=== PATIENT | female | born 1990 | race Hispanic/Latino ===

== ENCOUNTER 2020-12-29 06:53 | Emergency (ER) ==
[2020-12-29 07:51] LABS: Absolute Lymphocytes (CBC) 2.2 K/uL (0.7-4.9); Basophils % 0.7 % (0-1.3); Hematocrit 40.1 % (36.0-45.0); Lymphocytes % 30.1 % (15.3-44.8); MPV 8.5 fL (7.6-11.3); RBC Red Blood Cell Count 4.93 M/uL (3.86-4.86)
[2020-12-29 07:52] LABS: Protime INR 1.04
[2020-12-29 08:05] LABS: ALT/SGPT 26 U/L (12-78); AST/SGOT 13 U/L (15-37); Albumin 3.4 g/dL (3.4-5.0); Alkaline Phosphatase 80 U/L (45-117); BUN Blood Urea Nitrogen 15 mg/dL (7-18); Bicarbonate 26 mmol/L (21-32); Bilirubin Direct 0.1 mg/dL (0-0.2); Bilirubin Total 0.5 mg/dL (0.2-1.0); Glucose Level 90 mg/dL (74-106); Magnesium 2.1 mg/dL (1.8-2.4); NT PRO-BNP 66 pg/mL (<125); Potassium 3.5 mmol/L (3.5-5.1); Protein, Total 7.8 g/dL (6.4-8.2); Sodium Level 141 mmol/L (136-145); Troponin (Emerg Dept Use Only) < 0.02 ng/mL (0.0-0.045)
--- NOTE | 2020-12-29 08:19 | ER ---
Nurse's Notes [facility] Name: Sofi Thompson Age: 30 yrs Sex: Female : 1990 Arrival Date: 12/29/2020 Time: 07:00 Bed 5 Private MD: Diagnosis: Chest pain, unspecified;Abdominal and pelvic pain Presentation: 12/29 07:08 Chief complaint: Patient states: CP off/on for 1 week. No cough or SOB. Coronavirus ll1 screen: Client denies travel out of the [place] in the last 14 days. At this time, the client does not indicate any symptoms associated with coronavirus-19. Ebola Screen: Patient denies travel to an Ebola-affected area in the 21 days before illness onset. Initial Sepsis Screen: Does the patient meet any 2 criteria? HR > 90 bpm. No. Patient's initial sepsis screen is negative. Does the patient have a suspected source of infection? No. Patient's initial sepsis screen is negative. Risk Assessment: Do you want to hurt yourself or someone else? Patient reports no desire to harm self or others. Onset of symptoms was December 22, 2020. 07:08 Method Of Arrival: Ambulatory ll1 07:08 Acuity: GABRIELA 3 ll1 Triage Assessment: 07:10 General: Appears in no apparent distress. comfortable, obese, Behavior is cooperative, bp appropriate for age, anxious. Pain: Complains of pain in chest. EENT: No deficits noted. Neuro: No deficits noted. Cardiovascular: Rhythm is sinus rhythm. Respiratory: No deficits noted. GI: No signs and/or symptoms were reported involving the gastrointestinal system. : No signs and/or symptoms were reported regarding the genitourinary system. Derm: No deficits noted. Musculoskeletal: No deficits noted. Historical: - Allergies: 07:08 No Known Allergies; ll1 - PMHx: 07:08 None; ll1 - PSHx: 07:08 leg/hand SX; ll1 - Immunization history:: Flu vaccine is not up to date. - Social history:: Smoking status: Patient denies any tobacco usage or history of. Screenin:10 Abuse screen: Denies threats or abuse. Nutritional screening: No deficits noted. ll1 Tuberculosis screening: No symptoms or risk factors identified. 08:32 Fall Risk None identified. bp Assessment: 07:10 General: SEE TRIAGE NOTE. bp 08:32 Reassessment: PT D/C HOME AMBULATORY, DX WITH NONCARDIAC CHEST PAIN. bp Vital Signs: 07:08 BP 143 / 96; Pulse 92; Resp 17; Temp 98.9; Pulse Ox 98% on R/A; Weight 140.61 kg; ll1 Height 5 ft. 11 in. (180.34 cm); Pain 3/10; 08:31 BP 138 / 81; Pulse 92; Resp 21; Temp 98.5; Pulse Ox 97% ; bp 07:08 Body Mass Index 43.24 (140.61 kg, 180.34 cm) ll1 ED Course: 07:00 Patient arrived in ED. es 07:02 Alfred Villalba, RN is Primary Nurse. bp 07:07 Arm band placed on Patient placed in an exam room, on a stretcher. ll1 07:08 Mark Pacheco MD is Attending Physician. kdr 07:10 Triage completed. 1 07:25 Inserted saline lock: 20 gauge in right forearm, using aseptic technique. Blood bp collected. 07:27 Patient has correct armband on for positive identification. Bed in low position. Call bp light in reach. Side rails up X2. needle polisher on. Pulse ox on. NIBP on. 07:28 EKG done, by ED staff, reviewed by Mark Pacheco MD. 5 07:29 Placed in gown. Warm blanket given. 5 07:54 XRAY Chest (1 view) In Process Unspecified. EDMS 08:32 No provider procedures requiring assistance completed. IV discontinued, intact, bp bleeding controlled, No redness/swelling at site. Pressure dressing applied. Patient maintains SpO2 saturation greater than 95% on room air. Administered Medications: No medications were administered Outcome: 08:18 Discharge ordered by . kdr 08:32 Discharged to home ambulatory. bp 08:32 Condition: stable 08:32 Discharge instructions given to patient, Instructed on discharge instructions, follow up and referral plans. Demonstrated understanding of instructions, follow-up care. 08:33 Patient left the ED. bp Signatures: Dispatcher [employer] EDMS Mark Pacheco MD MD kdr Salyer, Edna es Martinez, [facility] Alfred Villalba, RN RN Ruel Dasilva RN RN 1
--- NOTE | 2020-12-29 08:19 | EDPHYS ---
Physician Documentation [facility] Name: Sofi Thompson Age: 30 yrs Sex: Female : 1990 Arrival Date: 12/29/2020 Time: 07:00 Bed 5 Private MD: ED Physician Mark Pacheco HPI: 12/29 08:13 This 30 yrs old Female presents to ER via Ambulatory with complaints of Chest kdr Pain. 08:13 The patient or guardian reports chest pain that is located primarily in the substernal kdr area, epigastric area. The pain radiates to back. Associated signs and symptoms: The patient has no apparent associated signs or symptoms. The chest pain is described as aching, burning, dull, a pressure. Duration: The patient or guardian reports multiple episodes, that are intermittent, that wax and wane, with no pattern. Modifying factors: The symptoms are alleviated by nothing. the symptoms are aggravated by eating. Severity of pain: At its worst the pain was mild in the emergency department the pain is unchanged. Not prior to this last week. The patient has not recently seen a physician. Historical: - Allergies: 07:08 No Known Allergies; ll1 - PMHx: 07:08 None; ll1 - PSHx: 07:08 leg/hand SX; ll1 - Immunization history:: Flu vaccine is not up to date. - Social history:: Smoking status: Patient denies any tobacco usage or history of. ROS: 08:13 Constitutional: Negative for fever, chills, and weight loss, Eyes: Negative for injury, kdr pain, redness, and discharge, ENT: Negative for injury, pain, and discharge, Neck: Negative for injury, pain, and swelling, Respiratory: Negative for shortness of breath, cough, wheezing, and pleuritic chest pain, Abdomen/GI: Negative for abdominal pain, nausea, vomiting, diarrhea, and constipation, Back: Negative for injury and pain, : Negative for injury, bleeding, discharge, and swelling, MS/Extremity: Negative for injury and deformity, Skin: Negative for injury, rash, and discoloration, Neuro: Negative for headache, weakness, numbness, tingling, and seizure activity. Psych: Negative for depression, anxiety, suicide ideation, homicidal ideation, and hallucinations, Allergy/Immunology: Negative for hives, rash, and allergies, Endocrine: Negative for neck swelling, polydipsia, polyuria, polyphagia, and marked weight changes, Hematologic/Lymphatic: Negative for swollen nodes, abnormal bleeding, and unusual bruising. 08:13 Cardiovascular: Positive for chest pain, Negative for edema, orthopnea, palpitations, paroxysmal nocturnal dyspnea. Exam: 08:13 Constitutional: This is a well developed, well nourished patient who is awake, alert, kdr and in no acute distress. Head/Face: Normocephalic, atraumatic. Eyes: Pupils equal round and reactive to light, extra-ocular motions intact. Lids and lashes normal. Conjunctiva and sclera are non-icteric and not injected. Cornea within normal limits. Periorbital areas with no swelling, redness, or edema. Neck: Trachea midline, no thyromegaly or masses palpated, and no cervical lymphadenopathy. Supple, full range of motion without nuchal rigidity, or vertebral point tenderness. No Meningismus. Chest/axilla: Normal chest wall appearance and motion. Nontender with no deformity. No lesions are appreciated. Cardiovascular: Regular rate and rhythm with a normal S1 and S2. No gallops, murmurs, or rubs. Normal PMI, no JVD. No pulse deficits. Respiratory: Lungs have equal breath sounds bilaterally, clear to auscultation and percussion. No rales, rhonchi or wheezes noted. No increased work of breathing, no retractions or nasal flaring. Abdomen/GI: Soft, non-tender, with normal bowel sounds. No distension or tympany. No guarding or rebound. No evidence of tenderness throughout. Back: No spinal tenderness. No costovertebral tenderness. Full range of motion. Skin: Warm, dry with normal turgor. Normal color with no rashes, no lesions, and no evidence of cellulitis. MS/ Extremity: Pulses equal, no cyanosis. Neurovascular intact. Full, normal range of motion. Neuro: Awake and alert, GCS 15, oriented to person, place, time, and situation. Cranial nerves II-XII grossly intact. Motor strength 5/5 in all extremities. Sensory grossly intact. Cerebellar exam normal. Normal gait. Psych: Awake, alert, with orientation to person, place and time. Behavior, mood, and affect are within normal limits. 12:47 ECG was reviewed by the Attending Physician. kdr Vital Signs: 07:08 BP 143 / 96; Pulse 92; Resp 17; Temp 98.9; Pulse Ox 98% on R/A; Weight 140.61 kg; ll1 Height 5 ft. 11 in. (180.34 cm); Pain 3/10; 08:31 BP 138 / 81; Pulse 92; Resp 21; Temp 98.5; Pulse Ox 97% ; bp 07:08 Body Mass Index 43.24 (140.61 kg, 180.34 cm) ll1 MDM: 08:13 HEART Score: History: Slightly Suspicious (0), ECG: Normal (0), Age: < or = 45 years kdr (0), Risk Factors: No Risk Factors Known (0), Troponin: < or = 1 x Normal Limit (0), Total Score = 0. Data reviewed: vital signs, nurses notes, lab test result(s), EKG, radiologic studies. Counseling: I had a detailed discussion with the patient and/or guardian regarding: the historical points, exam findings, and any diagnostic results supporting the discharge/admit diagnosis, lab results, radiology results, the need for outpatient follow up. Response to treatment: the patient's condition has returned to base line. Special discussion: Based on the patient's history, exam, and Dx evaluation, there is no indication for emergent intervention or inpatient Tx. It is understood by the patient/guardian that if the Sx's persist or worsen they need to return immediately for re-evaluation. I discussed with the patient/guardian in detail that at this point there is no indication for admission to the hospital. It is understood, however, that if the symptoms persist or worsen the patient needs to return immediately for re-evaluation. 08:18 Patient medically screened. [facility] 12/29 07:08 Order name: Basic Metabolic Panel [facility] 12/29 07:08 Order name: CBC with Diff [facility] 12/29 07:08 Order name: LFT's [facility] 12/29 07:08 Order name: Magnesium; Complete Time: 08:12 [facility] 12/29 07:08 Order name: NT PRO-BNP; Complete Time: 08:12 [facility] 12/29 07:08 Order name: PT-INR; Complete Time: 08:12 [facility] 12/29 07:08 Order name: Troponin (emerg Dept Use Only); Complete Time: 08:12 [facility] 12/29 07:08 Order name: XRAY Chest (1 view) [facility] 12/29 07:08 Order name: EKG; Complete Time: 07: [facility] 12/29 07:08 Order name: Cardiac monitoring; Complete Time: : [facility] 12/29 07:08 Order name: EKG - Nurse/Tech; Complete Time: : [facility] 12/29 07:09 Order name: Basic Metabolic Panel; Complete Time: 08:12 [facility] 12/29 07:09 Order name: CBC with Automated Diff; Complete Time: 08:12 [facility] 12/29 07:09 Order name: Liver (Hepatic) Function; Complete Time: 08:12 [facility] 12/29 07:08 Order name: IV Saline Lock; Complete Time: : [facility] 12/29 07:08 Order name: Labs collected and sent; Complete Time: [facility] 12/29 07:08 Order name: O2 Per Protocol; Complete Time: [facility] 12/29 07:08 Order name: O2 Sat Monitoring; Complete Time: [facility] EC:47 Rate is 95 beats/min. Rhythm is irregular, Sinus Rhythm with PACs. QRS [place] is Normal. kdr [place] interval is normal. QRS interval is normal. QT interval is normal. Clinical impression: NSR w/ Non-specific ST/T Changes. Administered Medications: No medications were administered Disposition: 12/29/20 08:18 Discharged to Home. Impression: Chest pain, unspecified, Abdominal and pelvic pain. - Condition is Stable. - Discharge Instructions: Abdominal Pain, Adult, [id number], Nonspecific Chest Pain, [id number]. - Medication Reconciliation Form, Thank You Letter, Work release form form. - Follow up: Private Physician; When: 2 - 3 days; Reason: If symptoms return, Further diagnostic work-up, Recheck today's complaints, Continuance of care, Re-evaluation by your physician. - Problem is new. - Symptoms are resolved. Signatures: Dispatcher [employer] EDMS Mark Pacheco MD MD kdr Alfred Villalba, RN RN bp Ruel Mora RN RN ll1 Corrections: (The following items were deleted from the chart) 08:33 08:18 12/29/2020 08:18 Discharged to Home. Impression: Chest pain, unspecified; bp Abdominal and pelvic pain. Condition is Stable. Forms are Medication Reconciliation Form, Thank You Letter, Antibiotic Education, Prescription Opioid Use. Follow up: Private Physician; When: 2 - 3 days; Reason: If symptoms return, Further diagnostic work-up, Recheck today's complaints, Continuance of care, Re-evaluation by your physician. Problem is new. Symptoms are resolved. kdr
--- NOTE | 2020-12-29 09:12 | RAD REPORT ---
EXAM DESCRIPTION: RAD - Chest Single View - 12/29/2020 7:55 am CLINICAL HISTORY: CHEST PAIN Chest pain. COMPARISON: No comparisons FINDINGS: Portable technique limits examination quality. The lungs are grossly clear. The heart is normal in size. No displaced fractures. IMPRESSION: No acute intrathoracic process suspected.
--- NOTE | 2021-01-03 12:10 | EKG ---
Test Date: 2020-12-29 Test Time: 07:09:26 Uniform Designer: JOAQUINA MEASUREMENT RESULTS: Intervals: Rate: 95 ID: [id number] QRSD: 82 QT: 352 QTc: 442 [place]: P: 27 ID: [id number] QRS: 42 T: 45 INTERPRETIVE STATEMENTS: Sinus rhythm with premature atrial complexes Otherwise normal ECG No previous ECG available for comparison Electronically Signed On 01-03-21 11:55:46 CDT by Chetan Robins
== END 2020-12-29 08:33 | disposition home or self-care (01) ==
LOC: ER 06:53
DX: R07.9 Chest pain, unspecified (principal); R10.2 Pelvic and perineal pain
CPT/HCPCS: 36415; 71045; 80048; 80076; 83735; 83880; 84484; 85025; 85610; 93005; 99285

== ENCOUNTER 2022-01-03 13:08 | Day surgery (SDC) | payer OTHER, SELFPAY ==
[2022-01-03] MEDS ORDERED: dexAMETHasone 10 MG/ML VIAL ONE ×2 (14:04→17:17)
[2022-01-03] MEDS ORDERED: CLINDAMYCIN 600MG/D5W 600 MG/50 ML BAG IV ONE (14:04)
[2022-01-03] MEDS ORDERED: NA CHLORIDE 0.9% 1,000 ML ONE (14:04)
[2022-01-03 14:49] LABS: Absolute Lymphocytes (CBC) 2.1 K/uL (0.7-4.9); Lymphocytes % 15.6 % (15.3-44.8); MPV 7.3 fL (7.6-11.3); RBC Red Blood Cell Count 4.98 M/uL (3.86-4.86)
[2022-01-03 15:03] LABS: Potassium 3.6 mmol/L (3.5-5.1)
--- NOTE | 2022-01-03 15:34 | RAD REPORT ---
EXAM DESCRIPTION: CT - Soft Tissue Neck W/Contr - 01/03/2022 3:19 pm CLINICAL HISTORY: Neck pain with sore throat COMPARISON: None. TECHNIQUE: Computed axial tomography of the neck was obtained. 50 cc Isovue 300 was administered in travenously. Coronal and sagittal reconstruction was performed. All CT scans are performed using dose optimization technique as appropriate and may include automated exposure control or mA/KV adjustment according to patient size. FINDINGS: The left tonsil is enlarged. Airway deviated to the right. 19 millimeter low-density mass lateral to the left tonsil likely abscess. The remainder of the pharynx, tongue base, larynx and subglottic trachea appear unremarkable The parotid, submandibular and thyroid glands appear unremarkable. No lymphadenopathy is seen The sinuses and mastoids are clear. IMPRESSION: Left tonsillitis with 19 millimeter peritonsillar abscess
[2022-01-03 16:28] LABS: Urine Blood 3+ (Negative); Urine Glucose Negative (Negative); Urine Protein Negative (Negative)
--- NOTE | 2022-01-03 16:35 | ER ---
Nurse's Notes [facility] Name: Sofi Thompson Age: 31 yrs Sex: Female : 1990 Arrival Date: 01/03/2022 Time: 13:14 Bed 10 Private MD: Diagnosis: Peritonsillar abscess Presentation: 01/03 13:16 Chief complaint: Patient states: i have a cyst on the back of my throat. they had to tw2 drain it when i was like 8 years old. i can barely open my mouth. for the past 3 days i tried to calm it down with mouthwash and take motrin. but it is getting to the point where i cant open my mouth. Coronavirus screen: At this time, the client does not indicate any symptoms associated with coronavirus-19. Ebola Screen: Patient denies travel to an Ebola-affected area in the 21 days before illness onset. Initial Sepsis Screen: Does the patient meet any 2 criteria? HR > 90 bpm. Does the patient have a suspected source of infection? No. Patient's initial sepsis screen is negative. Risk Assessment: Do you want to hurt yourself or someone else? Patient reports no desire to harm self or others. Onset of symptoms was January 03, 2022. 13:16 Method Of Arrival: Ambulatory tw2 13:16 Acuity: GABRIELA 3 tw2 Triage Assessment: 13:17 General: Appears uncomfortable, obese, Behavior is cooperative, appropriate for age, tw2 crying. Pain: Complains of pain in uvula, left aspect of posterior pharynx and right aspect of posterior pharynx. EENT: Reports difficulty swallowing. STUDENT ADMISSIONS CLERK: 13:18 LMP N/A - mirena tw2 Historical: - Allergies: 13:17 No Known Allergies; tw2 - Home Meds: 13:17 None [Active]; tw2 - PMHx: 13:17 None; tw2 - PSHx: 13:17 section; tw2 - Immunization history:: Client reports having NOT received the Covid vaccine. - Social history:: Smoking status: Patient denies any tobacco usage or history of. Screenin:31 Abuse screen: Denies threats or abuse. Denies injuries from another. Nutritional ld1 screening: No deficits noted. Tuberculosis screening: No symptoms or risk factors identified. Fall Risk None identified. Assessment: 15:31 Reassessment:. General: Appears in no apparent distress. comfortable, Behavior is calm, ld1 cooperative, appropriate for age. Pain: Complains of pain in uvula, left aspect of posterior pharynx and right aspect of posterior pharynx Pain does not radiate. Pain currently is 8 out of 10 on a pain scale. Quality of pain is described as throbbing. Neuro: Level of Consciousness is awake, alert, obeys commands, Oriented to person, place, time, situation. Cardiovascular: Capillary refill < 3 seconds Patient's skin is warm and dry. Respiratory: Airway is patent Respiratory effort is even, unlabored, Breath sounds are clear bilaterally. GI: Abdomen is round non-distended. : No signs and/or symptoms were reported regarding the genitourinary system. EENT: Throat is reddened Reports Sore throat. Vital Signs: 13:18 BP 165 / 101; Pulse 108; Resp 19; Temp 100.2(TE); Pulse Ox 98% on R/A; Weight 147.42 tw2 kg; Height 5 ft. 11 in. (180.34 cm); Pain 8/10; 15:31 BP 163 / 99; Pulse 102; Resp 18; Pulse Ox 99% on R/A; ld1 13:18 Body Mass Index 45.33 (147.42 kg, 180.34 cm) tw2 ED Course: 13:14 Patient arrived in ED. am2 13:17 Triage completed. tw2 13:18 [facility] Montemayor FNP [facility] 13:18 Lobo Juárez MD is Attending Physician. [facility] 13:18 Arm band placed on. tw2 13:42 Briseida Beyer, LUIZ is Primary Nurse. ap3 14:38 Initial lab(s) drawn, by ri, sent to lab. Inserted saline lock: 20 gauge in right 3 antecubital area, using aseptic technique. Blood collected. 14:54 Strep Sent. 3 15:21 CT Soft Tissue Neck W/contr In Process Unspecified. EDMS 15:31 Patient has correct armband on for positive identification. Placed in gown. Bed in low ld1 position. Call light in reach. Side rails up X2. aircraft maintenance instructor on. Pulse ox on. NIBP on. Door closed. Noise minimized. Warm blanket given. 15:31 No provider procedures requiring assistance completed. ld1 16:30 Patient admitted, IV remains in place. ap3 16:34 Brittney Snyder MD is Hospitalizing Provider. jh7 Administered Medications: 15:28 Drug: Clindamycin 600 mg Route: IVPB; Infused Over: 30 mins; Site: right antecubital; ld1 15:29 Drug: NS 0.9% 1000 ml Route: IV; Rate: 1 bolus; Site: right antecubital; ld1 15:29 Drug: Decadron - Dexamethasone 10 mg Route: IVP; Site: right antecubital; ld1 Medication: 15:31 VIS not applicable for this client. ld1 Outcome: 16:30 Admitted to OR accompanied by nurse, via stretcher. ap3 16:30 Condition: stable 16:35 Decision to Hospitalize by Provider. jh7 16:35 Patient left the ED. ld1 Signatures: Dispatcher [employer] EDMS Ivory Douglass RN RN 2 Briseida Slaughter 2 Saba Mirza 3 Briseida Beyer RN RN ap3 Shannon Parham RN RN ld1 Karen Montemayor, SIGNAL MAINTAINER HELPER SIGNAL MAINTAINER HELPER [facility]
--- NOTE | 2022-01-03 16:35 | EDPHYS ---
[facility] Name: Sofi Thompson Age: 31 yrs Sex: Female : 1990 Arrival Date: 01/03/2022 Time: 13:14 Bed 10 Private MD: JAROCHO Physician Lobo Juárez HPI: 01/03 13:20 This 31 yrs old Female presents to ER via Ambulatory with complaints of Sore jh7 Throat. 13:20 The patient presents with sore throat, dysphagia, of both solids and liquids. The jh7 patient describes throat pain as burning, constant. Onset: The symptoms/episode began/occurred 3 day(s) ago. Patient complains of sore throat, fever, and painful swallowing for 3 days. States that she has had an abscessed tonsil in the past. Denies chest pain, shortness of breath, cough, congestion.. 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 - Social history:: Smoking status: Patient denies any tobacco usage or history of. ROS: 13:20 Neck: Negative for injury, pain, and swelling, Cardiovascular: Negative for chest pain, jh7 palpitations, and edema, Respiratory: Negative for shortness of breath, cough, wheezing, and pleuritic chest pain, Abdomen/GI: Negative for abdominal pain, nausea, vomiting, diarrhea, and constipation, Back: Negative for injury and pain, Skin: Negative for injury, rash, and discoloration, Neuro: Negative for headache, weakness, numbness, tingling, and seizure. 13:20 Constitutional: Positive for fever, Negative for body aches, chills, fatigue. 13:20 ENT: Positive for difficulty swallowing, sore throat, trismus, Negative for ear pain, Teeth pain nasal discharge. 13:20 All other systems are negative. Exam: 13:20 Neck: Trachea midline, no thyromegaly or masses palpated, and no cervical jh7 lymphadenopathy. Supple, full range of motion without nuchal rigidity, or vertebral point tenderness. No Meningismus. Cardiovascular: Regular rate and rhythm with a normal S1 and S2. No gallops, murmurs, or rubs. Normal PMI, no JVD. No pulse deficits. Respiratory: Lungs have equal breath sounds bilaterally, clear to auscultation and percussion. No rales, rhonchi or wheezes noted. No increased work of breathing, no retractions or nasal flaring. Abdomen/GI: Soft, non-tender, with normal bowel sounds. No distension or tympany. No guarding or rebound. No evidence of tenderness throughout. Skin: Warm, dry with normal turgor. Normal color with no rashes, no lesions, and no evidence of cellulitis. Neuro: Awake and alert, GCS 15, oriented to person, place, time, and situation. Normal gait. 13:20 Constitutional: The patient appears alert, awake, uncomfortable. 13:20 ENT: Posterior pharynx: Airway: normal, no evidence of obstruction, Tonsils: Uvula: normal, peritonsillar mass, is noted on left. Vital Signs: 13:18 BP 165 / 101; Pulse 108; Resp 19; Temp 100.2(TE); Pulse Ox 98% on R/A; Weight 147.42 tw2 kg; Height 5 ft. 11 in. (180.34 cm); Pain 8/10; 15:31 BP 163 / 99; Pulse 102; Resp 18; Pulse Ox 99% on R/A; ld1 13:18 Body Mass Index 45.33 (147.42 kg, 180.34 cm) tw2 MDM: 13:20 Patient medically screened. [facility] 15:50 Differential diagnosis: peritonsillar abscess pharyngitis. Data reviewed: vital signs, [facility] nurses notes, lab test result(s), radiologic studies, CT scan. Data interpreted: Pulse oximetry:. Physician consultation: Brittney Snyder MD was called at 14:30, was contacted at 14:30, regarding need to come to ED to see patient, and will see patient in ED. 15:50 Counseling: I had a detailed discussion with the patient and/or guardian regarding: the [facility] historical points, exam findings, and any diagnostic results supporting the discharge/admit diagnosis. ED course: Dr. Snyder came and evaluated the patient in the ER. The patient was taken to the OR for drainage of a left peritonsillar abscess.. 01/03 13:33 Order name: Strep; Complete Time: 17:26 [facility] 01/03 13:33 Order name: CBC with Diff; Complete Time: 14:58 [facility] 01/03 13:33 Order name: BMP; Complete Time: 17:26 [facility] 01/03 14:08 Order name: CT Soft Tissue Neck W/contr; Complete Time: 17:26 [facility] 01/03 16:14 Order name: COVID-19 SARS RT PCR (Document "Date of Onset" if Symptomatic); Complete ap3 Time: 17:01/03 16:28 Order name: Urine Dipstick-Ancillary; Complete Time: 17:26 [facility] 01/03 16:15 Order name: Urine Test (obtain specimen) ap3 Administered Medications: 15:28 Drug: Clindamycin 600 mg Route: IVPB; Infused Over: 30 mins; Site: right antecubital; ld1 15:29 Drug: NS 0.9% 1000 ml Route: IV; Rate: 1 bolus; Site: right antecubital; ld1 15:29 Drug: Decadron - Dexamethasone 10 mg Route: IVP; Site: right antecubital; ld1 Disposition Summary: 01/03/22 16:35 Hospitalization Ordered Hospitalization Status: Observation [facility] Provider: Brittney Snyder [facility] Location: DAY SURGERY OTHER [facility] Condition: Stable [facility] Problem: new [facility] Symptoms: are unchanged [facility] Bed/Room Type: Standard [facility] Room Assignment: [facility] Diagnosis - Peritonsillar abscess [facility] Discharge Instructions: - Discharge Summary Sheet bd Forms: - SBAR form bd - Medication Reconciliation Form [facility] Signatures: Dispatcher [employer] Ivory Arita RN RN tw2 Briseida Beyer RN RN ap3 Shannon Parham RN RN ld1 Karen Montemayor FNP FNP [facility]
[2022-01-03] MEDS ORDERED: propofoL 200 MG/20 ML VIAL IV ONE (16:40)
[2022-01-03] MEDS ORDERED: FENTANYL CITR 100 MCG/2 ML ONE (16:40)
[2022-01-03] MEDS ORDERED: LIDOCAINE 2% MPF 5 ML VIAL ONE (16:40)
[2022-01-03] MEDS ORDERED: ROCURONIUM 50 MG/5 ML VIAL IV ONE (16:40)
[2022-01-03] MEDS ORDERED: BUPIVACA 0.5%/EPI 0.0005%/PF 30 ML VIAL ONE (16:44)
[2022-01-03] MEDS ORDERED: Ringers Lactate 1,000 ML IV ONE (16:46)
[2022-01-03] MEDS ORDERED: SUCCINYLCHOLINE 20 MG/ML (10 ML) IV ONE (16:46)
[2022-01-03] MEDS ORDERED: KETOROLAC 30 MG/ML INJ ONE (17:17)
[2022-01-03] MEDS ORDERED: ONDANSETRON 4 MG/2 ML VIAL ONE ×2 (17:17→17:53)
[2022-01-03] MEDS ORDERED: LABETALOL 20 MG/4ML SYRINGE IV ONE (17:19)
[2022-01-03] MEDS ORDERED: GLYCOPYRROLATE 0.2 MG/ML SYR ONE (17:27)
[2022-01-03] MEDS ORDERED: NEOSTIGMINE 1 MG/ML -10 ML VIAL ONE (17:27)
[2022-01-03] MEDS ORDERED: HYDROMORPHONE HCL 1 MG/ML INJ ONE (17:52)
[2022-01-03 18:22] VITALS: BP 120/69
[2022-01-03 20:08] VITALS: TEMP 97.4; O2SAT 98
--- NOTE | 2022-01-04 16:27 | CON ---
Date of Consultation: 01/03/2022 Chief Complaint: Sore throat. History Of Present Illness: The patient presents to the emergency room after a 3-day history of wors ening sore throat with moderate odynophagia and dysphagia and now mild shortness of breath due to thr oat swelling. The patient has a history of left peritonsillar abscess when she was 8 years old and she is concerned that this has redeveloped within the past few days. She is still tolerating p.o. fl uids, but it is very painful for her to swallow. She denies any ear or nasal symptoms. Past Medical History: Denies. Past Surgical History: section. Medications: Mirena. Allergies: NO KNOWN DRUG ALLERGIES. Social History: Denies alcohol, tobacco, or illicit drugs. Review of Systems: Head: Denies headache. Eyes: Denies drainage or pain. Ears: Denies otalgia, otorrhea. Nose: Denies rhinorrhea or exudate. Oral Cavity: Positive for sore throat, odynophagia, dysphagia, and throat swelling. Neck: Denies neck mass or swelling. Lungs: Positive for shortness of breath. Physical Examination: Vital Signs: Stable. General: The patient is alert, awake, and oriented, in no acute distress. Eyes: PERRLA/EOMI. Ears: External auditory canals are patent. Tympanic membranes are intact. No evidence of middle ea r effusion or tympanic membrane perforation. Nose: Midline septum. Moist nasal mucosa. No exudate. Oral Cavity: The patient is able to open her mouth approximately 2.5 cm, but the patient experiences a significant pain when asked to open for at least 5 seconds and she develops trismus. The patient also has left soft palatal swelling and bilateral tonsillitis, left worse than right with the left to nsil medially deviated to suggest an abscess. Neck: Supple. Trachea midline. No lymphadenopathy or thyromegaly palpated. Medications: The patient received clindamycin, Decadron, and normal saline bolus. Imaging: CT scan of the soft tissue of neck demonstrates bilateral tonsillitis with suggestion of a rim enhancing abscess involving the left peritonsillar space at the level of the mid pole of the left tonsil. Diagnosis: Acute left peritonsillar abscess - refractory to IV antibiotics and steroids. Plan: 1.Due to the patient's trismus and inability to keep the mouth open for an extended period of time, it is best that we go ahead and take her to the operating room for incision and drainage. She unders tood. All questions were answered and risks versus benefits and complications were explained and she agreed with the plan. 2.Plan is to discharge home after undergoing incision and drainage. Thank you for this most interesting consult. MARYAN Voice ID: [id number] Report ID: [id number]
--- NOTE | 2022-01-04 22:30 | OP ---
Date of Procedure: 01/03/2022 Surgeon: VISH CARDONA Preoperative Diagnosis: Acute left peritonsillar abscess. Postoperative Diagnosis: Acute left peritonsillar abscess. Procedure: Incision and drainage of left peritonsillar abscess under general endotracheal anesthesia . Anesthesia: General endotracheal anesthesia was administered. Also infiltrated approximately 6 mL o f 0.5% Marcaine with 1:100,000 epinephrine into the left soft palate and uvula and at the area of inc ision. Estimated Blood Loss: Less than 5 mL. Specimens: None. Findings: Large left tonsil with exudate. A small amount of abscess fluid was removed from the absc ess cavity with needlepoint electrocautery. Complications: None. Disposition: Stable. The patient tolerated the procedure well. Indications For Procedure: The patient is a pleasant 31-year-old lady, who presented to the emergenc y room after experiencing an acute development of left-sided throat pain. Upon examination, the ramón ent had evidence for a left peritonsillar abscess, which was confirmed on CT of the neck. These were indications to bring the patient to operative suite for the above-mentioned procedure and that she w as unable to keep her mouth open for an extended period of time in order for me to drain it at bedsid e in the emergency room. She understood. All questions were answered. Risks versus benefits and co mplications were explained in detail and a consent form was signed, which was placed in the chart. Description Of Procedure: The patient was transferred from the preoperative holding area to the oper ative suite by Department of Anesthesia, placed on the operating room table supine, sedated and intub ated in normal fashion. A [place]Ivor retractor was introduced into the right oral commissure and directe d along the endotracheal tube and suspended from the [place] stand. The superior pole of the left tonsi l was grasped with a straight Allis clamp and retracted midline and dissection through the mucosa saroj n the peritonsillar fascial plane was performed to the superior pole and extended inferiorly to the m id pole. The patient had mucoid secretions from the midpole area and I was able to advance a hemosta t into this area and open up the abscess cavity. Once drainage was removed, I irrigated with saline and hemostasis was achieved with suction Bovie on the 20th setting of coagulation. I then inserted a flexible orogastric tube into the esophagus and stomach and all fluid contents were removed. I inje cted approximately 6 mL of 0.5% Marcaine with 1:100,000 epinephrine to the incision site and adjacent to the incision. The patient was then de-suspended from the [place] stand. McIvor retractor was remov ed. The patient's jaw was checked and found to be in proper alignment. Head turban was used to cove r the face and this was removed at the end of the procedure. She tolerated the procedure well and wi ll be discharged home on antibiotics and analgesic medication and will follow up in 1-2 weeks or soon er if needed. AMARI/ANDRIA Voice ID: [id number] Report ID: [id number]
== END 2022-01-03 19:16 | disposition home or self-care (01) ==
LOC: ER 13:08 → DS 16:38
PROVIDERS: ATTEND Otolaryngology Facial Plastic Surgery
PROC: 0C9PXZZ Drainage of Tonsils, External Approach (ICD-10-PCS; principal; 2022-01-03 16:00)
DX: J36 Peritonsillar abscess (principal); Z20.822 Contact with and (suspected) exposure to COVID-19
CPT/HCPCS: 36415; 70491; 80048; 81003; 85025; 87081; 96374; 96375; 99285; J0330; J1100; J1170; J2405; J2704; J2710; J3010; J7030; J7120; Q9967; U0003

== ENCOUNTER 2022-01-24 09:28 | Day surgery (SDC) | payer OTHER ==
[2022-01-24] MEDS ORDERED: Ringers Lactate 1,000 ML IV ONE (10:11)
[2022-01-24] MEDS ORDERED: ACETAMINOPHEN 500 MG TAB ONE (10:18)
[2022-01-24] MEDS ORDERED: BUPIVACA 0.5%/EPI 0.0005%/PF 30 ML VIAL ONE (10:31)
[2022-01-24] MEDS ORDERED: propofoL 200 MG/20 ML VIAL IV ONE (10:34)
[2022-01-24] MEDS ORDERED: LIDOCAINE 2% MPF 5 ML VIAL ONE (10:35)
[2022-01-24] MEDS ORDERED: FENTANYL CITR 100 MCG/2 ML ONE (10:35)
[2022-01-24] MEDS ORDERED: ROCURONIUM 50 MG/5 ML VIAL IV ONE (10:35)
[2022-01-24] MEDS ORDERED: MIDAZOLAM HCL 2 MG/2 ML INJ ONE (10:35)
[2022-01-24] MEDS ORDERED: ONDANSETRON 4 MG/2 ML VIAL ONE (10:36)
[2022-01-24] MEDS ORDERED: GLYCOPYRROLATE 0.2 MG/ML SYR ONE ×2 (11:04→11:38)
[2022-01-24] MEDS ORDERED: dexAMETHasone 10 MG/ML VIAL ONE (11:04)
[2022-01-24] MEDS ORDERED: NEOSTIGMINE 1 MG/ML -10 ML VIAL ONE (11:41)
[2022-01-24] MEDS ORDERED: ESMOLOL HCL 10 ML IV ONE (11:41)
--- NOTE | 2022-01-24 12:15 | RAD REPORT ---
EXAM DESCRIPTION: Derrick Single View01/24/2022 11:57 am CLINICAL HISTORY: Shortness of breath COMPARISON: 2020 FINDINGS: Lung bases are mildly hazy. The remainder of the lungs appear clear of acute infiltrate. The heart is normal size IMPRESSION: Lung bases are mildly hazy which may indicate aspiration. Another consideration is that this is secondary to overlying soft tissue. PA and lateral chest series would be helpful for further evaluation
[2022-01-24] MEDS ORDERED: HYDROMORPHONE HCL 1 MG/ML INJ ONE (12:18)
[2022-01-24 13:06] VITALS: BP 128/64; TEMP 96.7; O2SAT 96
[2022-01-24] MEDS ORDERED: CODEINE 12mg/APAP 120mg PER 5 ML UCUP ONE (13:21)
--- NOTE | 2022-01-24 23:57 | OP ---
Date of Procedure: 01/24/2022 Surgeon: VISH CARDONA Primary care physician unknown. Preoperative Diagnoses: 1.Chronic tonsillitis. 2.History of left peritonsillar abscess x2. Postoperative Diagnoses: 1.Chronic tonsillitis. 2.History of left peritonsillar abscess x2. 3.Possible postoperative aspiration event. 4.Acute cough. Procedure: Tonsillectomy. Anesthesia: General endotracheal anesthesia was administered. I also infiltrated approximately 10 m L of 0.25% Marcaine with 1:200,000 epinephrine into bilateral tonsillar fossae and soft palate. Specimens: Bilateral tonsils submitted to Pathology for evaluation. Estimated Blood Loss: Less than 5 mL. Findings: Bilateral cryptic exudative tonsils 3/4 in size with no evidence of purulent fluid noted i n the left tonsil at the mid pole level. Multiple tonsil stones in bilateral tonsils. Adenoid cavit y is clear. No evidence of adenoid tissue. Complications: The patient had a brief postoperative emesis event in which there was no evidence of blood that there might have been some food particles noted in the emesis. The patient went to PACU a nd we obtained a stat AP view of the chest. Please see below documentation. Disposition: Stable. The patient tolerated the procedure well overall. Indications For Procedure: The patient is a pleasant 31-year-old female [facility] chronic tonsillar infections dating back to childhood. At the age of [age] years old , she had a left peritonsillar abscess which was successfully drained and then she had a most recent recurrent abscess within the past 4 weeks, which I successfully drained. These were indications to b ring the patient to the operative suite for the above-mentioned procedure and she understood and all questions were answered. Risks versus benefits and complications were explained in detail and a cons ent form was signed, which was placed in the chart. Description Of Procedure: The patient was transferred from the preoperative holding area to operativ e suite by Department of Anesthesia, placed on the operating table supine, sedated and intubated in n ormal fashion. Table was rotated 90 degrees and a shoulder roll was placed. Head and eyes were cove red with sterile blue towels and a moist Ray-May was placed over the upper lip for protection. A [facility] vor retractor was introduced into the right oral commissure and directed along the endotracheal tube and suspended from a [place] edi developer to the [place] stand. Tonsils were removed by grasping the superior poles midline and dissecting through the mucosa down the peritonsillar fascial plane with a needlepoi nt monopolar electrocautery on the setting of 20 for coagulation. Dissection continued within the pl ane whereby the inferior poles were amputated with suction Bovie. Both tonsils were significantly in flamed with multiple nodules and stones and exudate and there was a small amount of residual abscess fluid noted at the mid pole of the left tonsil. However, I was able to gain excellent dissection and there was no evidence of sauarv abscess. Hemostasis was achieved with monopolar electrocautery. I r etracted the soft palate anteriorly and I visualized the adenoid cavity with a laryngeal mirror and I did not see any adenoid tissue. I infiltrated approximately 10 mL of 0.5% Marcaine with 1:200,000 e pinephrine into bilateral tonsillar fossae and soft palate. I then inserted a flexible orogastric tu be into the esophagus and stomach and all fluid contents were removed. The patient was de-suspended from the [place] stand. The McIvor retractor was removed. The patient's jaw was checked and found to b e in proper alignment. Head turban and shoulder roll were removed. She tolerated the procedure well and upon extubation, she had an emesis event which was non bloody. It was slightly yellow and green with possibly food particles noted in the fluid. The patient was stabilized. She had no evidence o f laryngospasm and we did not need to reintubate. She was awakened and transferred to the postoperat christiano care unit and a stat chest x-ray was obtained, which may demonstrate some hazy opacity of bilater al inferior lobes, but I was able to see adequate sharp costophrenic angles. Her oxygen saturation r maite was between 95%-98%. The patient is morbidly obese and this may account for the slight desat. I listened to the patient's lungs and I did not notice any wheezing or decreased breath sounds or rho nchi. However, it was decided to go ahead and send the patient home on 750 of levofloxacin daily for 10 days and she will also be discharged home with some pain medication and she will be seen in 4 day s or sooner if needed. We will also start incentive spirometry for her to do at home and if she wors ens or develops a fever, she was instructed to return to the emergency room for further instructions. KD/MODL Voice ID: [id number] Report ID: [id number]
== END 2022-01-24 13:43 | disposition home or self-care (01) ==
LOC: OR 09:28
PROVIDERS: ATTEND Otolaryngology Facial Plastic Surgery
PROC: 0CTPXZZ Resection of Tonsils, External Approach (ICD-10-PCS; principal; 2022-01-24 11:30)
DX: J35.01 Chronic tonsillitis (principal); R05.9 Cough, unspecified; R11.10 Vomiting, unspecified; E66.01 Morbid (severe) obesity due to excess calories; Z20.822 Contact with and (suspected) exposure to COVID-19
CPT/HCPCS: 88304; 71045; 42826; U0003; J2704; J2710; J2250; J3010; J1100; J1170; J7120; J2405